=== PATIENT | female | born 1960 | race Caucasian/White ===

== ENCOUNTER → 2017-06-12 15:40 | Outpatient (CLI) | payer BC, SELFPAY | PROVIDERS: Visit Provider Emergency Medicine | DX: R53.83 Other fatigue (principal); Z79.899 Other long term (current) drug therapy ==

== ENCOUNTER → 2017-06-13 13:38 | Outpatient (CLI) | payer BC, SELFPAY ==
[2017-06-13 14:11] LABS: Basophils % 0.5 % (0.1-2.0); Eosinophils # 0.1 K/mm3 (0.0-0.4); Hematocrit 46.3 % (37.0-47.0); Hemoglobin 15.2 g/dL (12.2-16.2); Mean Corpuscular HGB Conc 32.8 g/dL (31.8-35.4); Mean Corpuscular Hemoglobin 29.3 pg (27.0-31.2); Mean Corpuscular Volume 89.4 fl (81-99); Mean Platelet Volume 7.9 fl (7.4-10.4); Monocytes # 0.4 K/mm3 (0.1-1.0); Monocytes % 5.8 % (1.7-9.3); Neutrophils # 4.8 K/mm3 (1.8-7.8); Neutrophils % 65.7 % (37.0-80.0); Platelet Count 333 K/mm3 (142-424); Red Blood Count 5.18 M/mm3 (4.20-5.40); White Blood Count 7.4 K/mm3 (4.8-10.8)
[2017-06-13 15:56] LABS: Alanine Aminotransferase 20 U/L (12-78); Albumin Level 3.9 gm/dL (3.4-5.0); Albumin/Globulin Ratio 1.1 (1.1-1.8); Alkaline Phosphatase 115 U/L (46-116); Anion Gap 12.8 mEq/L (5-15); Aspartate Amino Transferase 15 U/L (15-37); Bilirubin,Total 0.7 mg/dL (0.2-1.0); Blood Urea Nitrogen 9 mg/dL (7-18); Calcium 9.4 mg/dL (8.5-10.1); Carbon Dioxide 31 mmol/L (21.0-32.0); Chloride 104 mmol/L (98-107); Chol/HDL Ratio 3.4 (1-3.5); Cholesterol 204 mg/dL (140-200); Creatinine,Serum 0.79 mg/dL (0.55-1.02); Estimated Glomerular Filt Rate 74 ml/min (>60); GFR (African American) 90 ML/MIN (>60); Globulin 3.5 gm/dl (1.3-3.2); Glucose 90 mg/dL (74-106); HDL Cholesterol 60 mg/dL (29-89); LDL Cholesterol 130 mg/dL (0-130); Potassium 4.8 mmoL/L (3.5-5.1); Sodium 143 mmol/L (136-145); Thyroid Stimulating Hormone 0.79 uIU/ml (0.358-3.740); Total Protein,Serum 7.4 gm/dL (6.4-8.2); Triglycerides 70 mg/dL (30-200); VLDL Cholesterol 14 mg/dL (0-40)
== END ==
PROVIDERS: PCP Emergency Medicine; Visit Provider Emergency Medicine
DX: R53.83 Other fatigue (principal)
CPT/HCPCS: 36415; 80053; 80061; 84443; 85025

== ENCOUNTER → 2017-06-28 13:45 | Outpatient (CLI) | payer BC, SELFPAY ==
--- NOTE | 2017-06-28 13:47 | MR_ITS ---
MR knee RT wo con HISTORY: Left knee pain and swelling with knee giving out ORDERING PHYSICIAN: Jeffrey Everett MD PATIENT AGE: 57 years COMPARISON: Radiograph of 01/08/2016 TECHNIQUE: Standard multiplanar multiecho sequences are performed without contrast. FINDINGS: There is complete tear of ACL. The posterior cruciate ligament is intact. The collateral ligaments, patellar tendon, and quadriceps tendon are intact. No meniscal tears evident. There is a small knee joint effusion. The patellar cartilage is and posteriorly and laterally. There are moderate to severe osteoarthritic changes involving all 3 compartments. The medial meniscus is extruded somewhat medially. There is decrease in joint space medially and laterally moderate to severe osteoarthritic changes are present at the patellofemoral joint with osteophyte formation. There is a 16 mm triangular-shaped bony fragment along the posterior aspect of the medial joint space centrally. This may represent an loose fragment however, the site of origin is not identified. An atypical osteophyte is also a consideration. However, cannot with certainty connecting this to an adjacent bone. This is possibly contiguous with the central aspect of the medial femoral condyle. Thin section CT with multiplanar reformats may confirm this if clinically warranted. There is a well-circumscribed 14 mm cystic lesion in the proximal tibia centrally multilocular. This has a benign appearance consistent with a cortical defect. Subarticular cystic changes involve the fibular head. There are hypertrophic changes of the tibial spines. IMPRESSION: 1. Complete tear of the ACL. 2. Moderate to severe tricompartmental osteoarthritic changes with small knee joint effusion. Subarticular cystic changes the fibular head 3. 16 mm triangular-shaped bony fragment along the posterior aspect of the medial joint space centrally. This may represent an loose fragment however, the site of origin is not identified. An atypical osteophyte is also a consideration. However, cannot with certainty connect this to an adjacent bone. This is possibly contiguous with the central aspect of the medial femoral condyle. Thin section CT with multiplanar reformats may confirm this if clinically warranted 4. Benign-appearing cystic lesion of the proximal fibula MTDD
== END ==
PROVIDERS: Family Provider Physician Assistant; PCP Emergency Medicine; Visit Provider Orthopaedic Surgery
DX: M17.10 Unilateral primary osteoarthritis, unspecified knee (principal); M25.569 Pain in unspecified knee
CPT/HCPCS: 73721

== ENCOUNTER 2017-07-06 15:00 | Outpatient (RCR) | payer BC, SELFPAY | END 2017-07-06 15:10 | disposition home or self-care (01) | LOC: PT 15:00 | PROVIDERS: Family Provider Physician Assistant; PCP Emergency Medicine; Visit Provider Orthopaedic Surgery | DX: M25.562 Pain in left knee (principal) ==